=== PATIENT | male | born 1965 | race Caucasian/White ===

== ENCOUNTER → 2018-01-07 | Outpatient (CLI) | payer MEDICARE, MEDICAID ==
--- NOTE | 2018-01-07 13:37 | Diagnostic Imaging Report ---
INDICATION: Right flank pain. COMPARISON: None. FINDINGS: Single frontal radiographic view of the abdomen was obtained. Multiple extraosseous calcifications are noted. There is a 6 mm rounded calcification projecting over the right psoas muscle interposed between the right L4 and L5 transverse processes suspicious for mid ureteral calculus. There is also an additional 8 mm calculus projecting over the right renal shadow. Left-sided nephrolithiasis is also noted. There is an approximately 6 mm calculus projecting over the inferior pole of the left kidney. Small bowel loops are nondistended. There is no large collection of free intraperitoneal air. Patient appears to be status post previous ventral hernia repair. Otherwise, no unexpected radiopaque foreign bodies are seen. IMPRESSION: 1. Probable mid right ureteral calculus. 2. Bilateral nephrolithiasis. Dictated by: Dictated on workstation # [id number]
== END ==
LOC: RAD 13:13
PROVIDERS: ATTEND Urology
DX: N20.2 Calculus of kidney with calculus of ureter (principal)
CPT/HCPCS: 74018

== ENCOUNTER 2018-01-08 07:57 | Day surgery (SDC) | payer MEDICARE, MEDICAID ==
[~2018-01-08] VITALS: Ht 182.9 cm; Wt 90.7 kg
--- OUTSIDE RECORDS SUMMARY | 2018-01-08 08:03 | XMS REPORT | Continuity of Care Document ---
Author Author [facility] Organization [facility] Address Unknown Phone Unavailable Allergies Active Description Code Type Severity Reaction Onset Reported/Identified Relationship to Patient Clinical Status Yes NO KNOWN DRUG ALLERGIES UNKNOWN NO KNOWN DRUG ALLERG Yes meperidine [id number] Drug Allergy Unknown N/A 06/21/2015 Medications Medication Packaging Start Date Stop Date Route Dosage Sig KETOROLAC VIAL INJ 30 MG/CC (TORADOL VIAL) MG 01/05/2018 01/05/2018 ONCE&2044 LACTATED RINGERS 1000CC IV BAG INJ ml 01/05/2018 01/05/2018 ONCE&2044 FENTANYL INJ 100 MCG/2CC VIAL MCG 01/05/2018 01/05/2018 ONCE&213 Problems Date Dx Coded Attending Type Code Diagnosis Diagnosed By 07/04/2015 ENRIQUE ANDERSON, DEL Lewis Ot V58.32 Procedures There is no data. Results Test Result Range Comprehensive Metabolic Panel - 01/05/18 20:40 Albumin 4.4 g/dL 3.6-5.1 ALP 86 U/L 35-130 ALT 27 U/L 6-45 Anion Gap 16 6-14 AST 23 U/L 2-40 BUN 22 mg/dL 5-25 Calcium 10.1 mg/dL 8.3-10.4 Chloride 105 mmol/L 95-114 CO2 26 mEq/L 22-33 Creat 1.26 mg/dL 0.50-1.50 eGFR 60 mL/min/1.73m2 >59 Globulin 3.9 g/dL 2.3-3.5 Glucose 144 mg/dL 70-110 Osmo 301 280-295 Potassium 3.8 mmol/L 3.5-5.3 Sodium 143 mmol/L 134-148 TBil 0.3 mg/dL 0.2-1.2 TP 8.3 g/dL 6.0-8.3 Encounters ACCT No. Visit Date/Time Discharge Status Pt. Type Provider Facility Loc./Unit Complaint [id number] 10/17/2015 09:43:00 10/17/2015 23:59:59 CLS Outpatient RAGHU RIVERS APRN [facility] QUICK [id number] 07/01/2015 12:58:00 07/01/2015 13:08:00 DIS Emergency DEL NUNEZ MD [facility] ER [id number] 06/21/2015 14:19:00 06/21/2015 14:55:00 DIS Emergency EMILY RIVERA APRN [facility] ER [id number] 01/05/2018 20:48:26 Document Registration [id number] 01/05/2018 20:35:00 Document Registration
[2018-01-08 08:19] VITALS: BP 161/101
--- NOTE | 2018-01-08 08:19 | Progress Note-Pre Operative ---
Pre-Operative Progress Note H&P Reviewed The H&P was reviewed, patient examined and no changes noted. Date Seen by Provider: Jan 08, 2018 Time Seen by Provider: 08:18 Date H&P Reviewed: Jan 08, 2018 Time H&P Reviewed: 08:18 Pre-Operative Diagnosis: RT PROXIMAL AND BILATERAL RENAL STONES RANI CONLEY MD Jan 08, 2018 8:19 am
[2018-01-08] MEDS ORDERED: cefTRIAXone 1 GM/NS 100 ML IVPB IV ONE ×2 (08:30)
--- NOTE | 2018-01-08 09:06 | Diagnostic Imaging Report ---
INDICATION: Right ureteral calculus. Bilateral nephrolithiasis. COMPARISON: 01/07/2018 FINDINGS: Single supine radiographic view of the abdomen was obtained. Previously described calculus projecting over the right psoas muscle is much less conspicuous on this exam. This however is felt to be related to obscuration by colonic air and stool. Bilateral nephrolithiasis is again noted. Postsurgical changes of previous ventral hernia repair are also seen. No unexpected radiopaque foreign bodies are identified. Small bowel loops are nondistended. Bony structures show no gross acute abnormality. IMPRESSION: 1. Extraosseous calcification concerning for right mid ureteral stone identified on previous exam is much less conspicuous on today's study, but again this is felt to be related to obscuration by overlying chronic air and stool. 2. Redemonstration bilateral nephrolithiasis. Dictated by: Dictated on workstation # [id number]
--- NOTE | 2018-01-08 09:06 | Diagnostic Imaging Report ---
INDICATION: Palpitations. Ureteral calculi. COMPARISON: None FINDINGS: Frontal and lateral views of the chest demonstrate normal heart size and pulmonary vascularity. The lungs are clear. There are no signs of infiltrate, pleural effusions or pneumothoraces. The visualized osseous structures show no acute abnormalities. IMPRESSION: 1. No acute process. No signs of infiltrates, effusions or pneumothoraces. Dictated by: Dictated on workstation # [id number]
[2018-01-08] MEDS ORDERED: LIDOCAINE PF 2% 5 ML (XYLOCAINE) VIAL ONE (09:39)
[2018-01-08] MEDS ORDERED: fentaNYL INJECTION 100 MCG/2 ML AMP ONE (09:39)
[2018-01-08] MEDS ORDERED: ONDANSETRON 4 MG/2 ML (SDV) Z0FRAN ONE (09:39)
[2018-01-08] MEDS ORDERED: proPOfol 200 MG/20 ML (DIPRIVAN) VIAL IV ONE (09:39)
[2018-01-08] MEDS ORDERED: SEVOFLURANE (ULTANE) 15 ML INHAL SOLN ONE (09:39)
[2018-01-08] MEDS ORDERED: DEXAMETHASONE 10 MG/ML (DECADRON) 1 ML VIAL ONE (09:39)
[2018-01-08] MEDS ORDERED: MIDAZOLAM 2 MG/2 ML (VERSED) VIAL ONE (09:40)
--- NOTE | 2018-01-08 11:23 | Progress Note-Post Operative ---
Post-Operative Progess Note Surgeon (s)/Soot Blower (s) Surgeon RANI CONLEY MD Soot Blower: N/A Pre-Operative Diagnosis RT PROXIMAL AND BILATERAL RENAL STONES Post-Operative Diagnosis SAME Procedure & Operative Findings Date of Procedure 01/08/18 Procedure Performed/Findings RT URETEROSCOPY, RT URETERAL STONE MANIPULATION, RT RETROGRADE UROGRAM AND RT JJ STENT PLACEMENT Anesthesia Type GENERAL Estimated Blood Loss Estimated blood loss (mL): N/A Specimens/Packing Specimens Removed N/A Packing: N/A RANI CONLEY MD Jan 08, 2018 11:23 am
--- NOTE | 2018-01-08 11:26 | Discharge Inst-Urology ---
Discharge Inst-Urology Discharge Medications New, Converted, or Re-newed RX: RX on Chart Patient Instructions/Follow Up Plan Please make appointment to been seen in office Saturday 01/27, KUB prior to it KUB on way home Increase oral fluids for 48 hours and then as needed. Diet and Activity as tolerated. If questions or concerns contact your physician Or seek help at emergency department. RANI CONLEY MD Jan 08, 2018 11:26 am
[2018-01-08] MEDS ORDERED: morphine INJ 10 MG/ML 1ML (SYR OR VIAL) IVP PRN (11:30)
[2018-01-08] MEDS ORDERED: MEPERIDINE (DEMEROL) INJ 50 MG/ML IVP PRN (11:30)
[2018-01-08] MEDS ORDERED: ONDANSETRON 4 MG/2 ML (SDV) Z0FRAN IVP PRN (11:30)
[2018-01-08 12:20] VITALS: BP 131/96
--- NOTE | 2018-01-08 12:43 | Diagnostic Imaging Report ---
Procedure: Fluoroscopy. Indication: Right ureteroscopy with a stone lithotripsy. Findings: Fluoroscopic assistance was provided for Dr. Bledsoe. 90.4 seconds of fluoroscopy time was utilized. Five spot films were received from the OR. The films are not marked right or left. There is a retrograde device in place. There has been opacification of the right ureter and right renal pelvis. The abdomen exam performed earlier today raised the question of a calculus in the midportion of the right ureter. On this exam there is no clear defect within the opacified right ureter to suggest a calculus. The calculus overlying the superior pole of the right kidney seen on plain film exam is difficult to appreciate on this exam. Impression: 1. Fluoroscopic assistance was provided for Dr. Bledsoe. 2. There is no evidence for defect within the right ureter to suggest a calculus. Dictated by: Dictated on workstation # [id number]
[2018-01-08 12:50] VITALS: BP 137/93
--- NOTE | 2018-01-08 14:05 | OPERATIVE REPORT ---
DATE OF SERVICE: 01/08/2018 PREOPERATIVE DIAGNOSES: 1. Right proximal ureteral stone. 2. Bilateral renal stones. POSTOPERATIVE DIAGNOSES: 1. Right proximal ureteral stone. 2. Bilateral renal stones. OPERATION PERFORMED: Right ureteroscopy, stone manipulation, retrograde urogram, and insertion of right double-J stent. SURGEON: Reese Conley MD ANESTHESIA: General. COMPLICATIONS: None. PROCEDURE: Under satisfactory general anesthesia, the patient in lithotomy position, genitalia were prepped and draped in the usual sterile fashion. Cystoscope was introduced under vision. The anterior urethra was normal. The prostate revealed some enlargement with some bladder neck obstruction and trabeculations of the bladder. Ureteric orifices were normal in shape, size and configuration with clear efflux and sluggish on the right side. No foreign body, bladder tumor or stone visualized. Using the foroblique lens, I dilated the right ureteral orifice and intramural portion to accommodate a 6.9 Estonian semirigid ureteroscope; however, I could not manipulate the curve in the upper part of the distal ureter, so it was discontinued. Further attempt to remove the ureteroscope, reinserted the cystoscope. Passed a 6-Estonian ureteral catheter to the level of the stone, I pushed it back into the kidney, backed up the catheter and injected contrast. There was no filling defect along the ureter and complete emptying of the ureter was no problem. I removed the ureteral catheter, inserted a 6-Estonian 26 cm double-J stent, guided fluoroscopically easily all the way up to the right renal pelvis. The wire was removed and the stent was seen draining nicely, proximally, fluoroscopically and distally, endoscopically. Bladder was evacuated and the cystoscope was removed. The patient tolerated the procedure and anesthesia well and was sent to recovery room in stable condition. PLAN: Right ESWL on both the ureteral now renal stone and the other renal stone unless one of them decide to move down again. Later around two weeks later we will do the left side. The plan was fully explained to the patient preoperatively and his sister and postoperative as well. Job ID: [id number] DocumentID: [id number] Dictated Date: 01/08/2018 11:29:27 Traffic Technician Date: 01/08/2018 14:05:14 Dictated By: REESE CONLEY MD
--- NOTE | 2018-01-08 14:51 | Anesthesia-General Post-Op ---
General Patient Condition Mental Status/LOC: Same as Preop Cardiovascular: Satisfactory Nausea/Vomiting: Absent Respiratory: Satisfactory Pain: Controlled Complications: Absent Post Op Complications Complications None Follow Up Care/Instructions Patient Instructions None needed. Anesthesia/Patient Condition Patient Condition Patient is doing well, no complaints, stable vital signs, no apparent adverse anesthesia problems. No complications reported per nursing. ANJEL BEACH CRNA Jan 08, 2018 14:51
--- NOTE | 2018-01-08 16:46 | Diagnostic Imaging Report ---
EXAMINATION: Supine abdomen at 01:06 p.m. INDICATION: Post right ESWL. FINDINGS: Reportedly, the patient underwent ESWL earlier today. On this exam, there is now a stent overlying the expected path of the right ureter. The stent seems to be in good position. There is a small 5 mm calcification overlying the right renal contour near the tip of the stent. This may be related to the calcification overlying the path of the right ureter seen on the exam performed earlier today. The calcifications overlying the superior pole of the right kidney and the midportion of the left kidney noted previously are again evident and no different. There is no clear evidence for a calculus along the path of the stent. The overall appearance of the abdomen is otherwise no different. IMPRESSION: There is now a ureteral stent in place on the right. The stent seems to be in good position. There are calculi overlying each kidney, but there is no evidence for a calculus adjacent to the stent. Dictated by: Dictated on workstation # [id number]
== END 2018-01-08 12:50 ==
LOC: SDC 07:57
PROVIDERS: ATTEND Urology
DX: N20.1 Calculus of ureter (principal); N20.0 Calculus of kidney; Z11.2 Encounter for screening for other bacterial diseases; K21.9 Gastro-esophageal reflux disease without esophagitis; I10 Essential (primary) hypertension; F17.210 Nicotine dependence, cigarettes, uncomplicated
CPT/HCPCS: 71046; 74018; 87081; 93005

== ENCOUNTER → 2018-02-10 | Outpatient (CLI) | payer MEDICARE, MEDICAID ==
[~2018-02-10] MED LIST: HYDR-3870 PO; NITR-65 PO; TAMS0.4C98 PO
== END ==
LOC: PREOP 05:39
PROVIDERS: ATTEND Urology
DX: Z01.818 Encounter for other preprocedural examination (principal)

== ENCOUNTER → 2018-02-10 | Outpatient (CLI) | payer MEDICARE, MEDICAID ==
--- NOTE | 2018-02-10 15:32 | Diagnostic Imaging Report ---
INDICATION: Nephrolithiasis EXAM: KUB at 2:33 PM FINDINGS: There is a 9 mm cluster of stones in the inferior pole calyx of the right kidney. There is an 8 mm stone in the inferior pole of the left kidney. There is a right-sided double-J ureteral stent. IMPRESSION: Bilateral nephrolithiasis. Dictated by: Dictated on workstation # [id number]
== END ==
LOC: RAD 13:55
PROVIDERS: ATTEND Urology
DX: N20.0 Calculus of kidney (principal)
CPT/HCPCS: 74018

== ENCOUNTER 2018-02-11 08:33 | Day surgery (SDC) | payer MEDICARE, MEDICAID ==
[~2018-02-11] VITALS: Ht 182.9 cm; Wt 90.7 kg
[2018-02-11 08:38] VITALS: BP 144/92
--- NOTE | 2018-02-11 09:02 | Progress Note-Pre Operative ---
Pre-Operative Progress Note H&P Reviewed The H&P was reviewed, patient examined and no changes noted. Date Seen by Provider: February 11, 2018 Time Seen by Provider: 09:01 Date H&P Reviewed: February 11, 2018 Time H&P Reviewed: 09:01 Pre-Operative Diagnosis: LT RENAL STONE RANI CONLEY MD February 11, 2018 9:02 am
[2018-02-11] MEDS ORDERED: NS (IVPB) 100 ML ONE (09:26)
[2018-02-11] MEDS ORDERED: cefTRIAXone 1 GM (ROCEPHIN) VIAL ONE (09:26)
[2018-02-11] MEDS ORDERED: CATHETER FLUSH 10 ML SYR IV PRN (09:45)
[2018-02-11] MEDS ORDERED: cefTRIAXone 1 GM/NS 100 ML IVPB IV ONE ×2 (09:45)
--- NOTE | 2018-02-11 09:49 | Diagnostic Imaging Report ---
INDICATION: Preoperative evaluation prior to ESWL. COMPARISON: 02/10/2018. FINDINGS: Single supine radiographic view of the abdomen was obtained and demonstrates indwelling right-sided double-J ureteral stent in stable position. Bilateral renal calculi are again identified and are stable in position as well. No new unexpected extraosseous calcifications or radiopaque foreign bodies are seen. Small bowel loops are nondistended. There is no large collection of free intraperitoneal air. IMPRESSION: 1. Redemonstration of bilateral nephrolithiasis. 2. Indwelling right-sided double-J ureteral stent in stable position. Dictated by: Dictated on workstation # [id number]
[2018-02-11] MEDS ORDERED: FUROSEMIDE 40 MG/4 ML INJ (LASIX) ONE (11:08)
[2018-02-11] MEDS ORDERED: DEXAMETHASONE 10 MG/ML (DECADRON) 1 ML VIAL ONE (11:08)
[2018-02-11] MEDS ORDERED: LIDOCAINE PF 2% 5 ML (XYLOCAINE) VIAL ONE (11:08)
[2018-02-11] MEDS ORDERED: ONDANSETRON 4 MG/2 ML (SDV) Z0FRAN ONE (11:08)
[2018-02-11] MEDS ORDERED: SEVOFLURANE (ULTANE) 15 ML INHAL SOLN ONE ×2 (11:08→12:31)
[2018-02-11] MEDS ORDERED: proPOfol 200 MG/20 ML (DIPRIVAN) VIAL IV ONE (11:08)
[2018-02-11] MEDS ORDERED: KETOROLAC 30 MG/ML VIAL ONE (11:08)
[2018-02-11] MEDS ORDERED: MIDAZOLAM 2 MG/2 ML (VERSED) VIAL ONE (11:09)
[2018-02-11] MEDS ORDERED: fentaNYL INJECTION 100 MCG/2 ML AMP ONE (11:09)
--- NOTE | 2018-02-11 12:15 | Progress Note-Post Operative ---
Post-Operative Progess Note Surgeon (s)/Shactor Helper (s) Surgeon RANI CONLEY MD Shactor Helper: N/A Pre-Operative Diagnosis LT RENAL STONE Post-Operative Diagnosis SAME Procedure & Operative Findings Date of Procedure 02/11/18 Procedure Performed/Findings CYSTO, REMOVAL OF RT STENT AND LT ESWL Anesthesia Type GENERAL Estimated Blood Loss Estimated blood loss (mL): N/A Specimens/Packing Specimens Removed RT STENT Packing: N/A RANI CONLEY MD February 11, 2018 12:15 pm
--- NOTE | 2018-02-11 12:16 | Discharge Inst-Urology ---
Discharge Inst-Urology Discharge Medications New, Converted, or Re-newed RX: RX on Chart Patient Instructions/Follow Up Plan Please make appointment to been seen in office in 2 weeks. KUB prior to it KUB on way home Post ESWL instructions Increase oral fluids for 48 hours and then as needed. Diet and Activity as tolerated. If questions or concerns contact your physician Or seek help at emergency department. RANI CONLEY MD February 11, 2018 12:16 pm
[2018-02-11] MEDS ORDERED: LACTATED RINGERS 1,000 ML IV PRN (13:08)
[2018-02-11 13:30] VITALS: BP 133/91
[2018-02-11 14:00] VITALS: BP 142/104
[2018-02-11 14:30] VITALS: BP 160/98
--- NOTE | 2018-02-11 14:45 | Anesthesia-General Post-Op ---
General Patient Condition Mental Status/LOC: Same as Preop Cardiovascular: Satisfactory Nausea/Vomiting: Absent Respiratory: Satisfactory Pain: Controlled Complications: Absent Post Op Complications Complications None Follow Up Care/Instructions Patient Instructions None needed. Anesthesia/Patient Condition Patient Condition Patient was seen after the procedure and he was doing well, no complaints, stable vital signs, no apparent adverse anesthesia problems. JOHNSON KOENIG DO February 11, 2018 14:45
[2018-02-11 14:53] VITALS: BP 160/98
--- NOTE | 2018-02-11 15:07 | Diagnostic Imaging Report ---
Supine abdomen at 2:54. Indication: Post ESWL The exam performed earlier today noted calcific densities overlying each kidney. Report in the interval since the prior exam, the patient has undergone ESWL The calcification overlying the inferior pole of the right kidney is less distinct on this study and may be partially fragmented. The calcification overlying the left kidney is essentially no different. The ureteral stent on the right noted previously has been removed. The overall appearance the abdomen has not changed significantly otherwise. Impression: 1. The indistinct appearance of the calculus overlying the inferior pole of the right kidney suggests that it may be partially fragmented. The right ureteral stent has also been removed. 2. The appearance of the abdomen is essentially no different otherwise. Dictated by: Dictated on workstation # [id number]
--- NOTE | 2018-02-11 23:13 | OPERATIVE REPORT ---
DATE OF SERVICE: 02/11/2018 PREOPERATIVE DIAGNOSIS: Left renal stone. POSTOPERATIVE DIAGNOSIS: Left renal stone. OPERATION PERFORMED: Cystoscopy, removal of right ureteral stent and left ESWL. SURGEON: Reese Conley MD. ANESTHESIA: General. COMPLICATIONS: None. DESCRIPTION OF PROCEDURE: Under satisfactory general anesthesia, the patient in lithotomy position, genitalia were prepped and draped in the usual sterile fashion. Cystoscope was introduced under vision. The anterior urethra was normal. The prostate was nonobstructing. Bladder neck was opened. The distal end of the right ureteral stent was visualized, grasped with a grasping forceps and removed in toto. The patient was then put supine and the left renal stone was localized. Shocks were delivered at a kV of 5. A total of 2500 shocks completely fragmented the stone. The patient received 40 mg of Lasix and 30 mg of Toradol IV at the end of the procedure. He tolerated the procedure and anesthesia well and was sent to recovery room in stable condition. Job ID: [id number] DocumentID: [id number] Dictated Date: 02/11/2018 12:30:33 Underwear Welter Date: 02/11/2018 23:13:16 Dictated By: REESE CONLEY MD
== END 2018-02-11 14:53 | disposition home or self-care (01) ==
LOC: SDC 08:33
PROVIDERS: ATTEND Urology
DX: N20.0 Calculus of kidney (principal); Z96.0 Presence of urogenital implants
CPT/HCPCS: 74018; 87081

== ENCOUNTER → 2018-02-24 | Outpatient (CLI) | payer MEDICARE, MEDICAID ==
--- NOTE | 2018-02-24 17:16 | Diagnostic Imaging Report ---
INDICATION: Renal calculi. COMPARISON: 02/11/2018. FINDINGS: Two views of the abdomen demonstrate previously described renal calculus overlying the 12th rib, which is no longer seen. The bowel gas pattern is normal. Probable calcification is seen in the inferior pole of the right kidney. IMPRESSION: 1. Left renal calculus no longer identified on this series. 2. Stable probable right renal calculi. Dictated by: Dictated on workstation # [id number]
== END ==
LOC: RAD 15:40
PROVIDERS: ATTEND Urology
DX: N20.0 Calculus of kidney (principal)
CPT/HCPCS: 74018

== ENCOUNTER → 2018-06-06 | Outpatient (CLI) | payer MEDICARE, MEDICAID ==
--- NOTE | 2018-06-06 12:34 | Diagnostic Imaging Report ---
INDICATION: Nephrolithiasis. TECHNIQUE: Single supine view of the abdomen 11:09 AM. CORRELATION STUDY: 02/24/2018 FINDINGS: Overlying bowel gas and stool is present obscuring detail. There is small area of calcification in the right upper quadrant likely over the right renal silhouette. In aggregate, it measures 5 mm. No definitive calcification over the left renal silhouette and/or along the expected course of either ureter. There are however several calcifications within the pelvis, likely largely phleboliths. Prior surgical change with hernia mesh repair over the right lower quadrant. IMPRESSION: 1. Small, 5 mm grouped area of fragmented calcification in the right upper quadrant suspect for potential right renal stones. Dictated by: Dictated on workstation # [id number]
== END ==
LOC: RAD 10:38
PROVIDERS: ATTEND Urology
DX: N20.0 Calculus of kidney (principal)
CPT/HCPCS: 74018

== ENCOUNTER 2019-01-27 09:48 | Emergency (ER) | payer MEDICARE, MEDICAID ==
[~2019-01-27] VITALS: Ht 180.3 cm; Wt 93.9 kg
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
[2019-01-27] MEDS ORDERED: OMEG1200 (10:10)
[2019-01-27] MEDS ORDERED: LISI2.5T (10:10)
[2019-01-27] MEDS ORDERED: TETANUS,DIPTH,PERTUSS P/F (BOOSTRIX) 0.5 ML VIAL IM ONE (10:15)
--- NOTE | 2019-01-27 10:24 | Diagnostic Imaging Report ---
INDICATION: Injury to the left shoulder AP, oblique, and transscapular views of the left shoulder were obtained. No fracture or acute bony abnormality seen. There is no significant degenerative change. IMPRESSION: Negative left shoulder. Dictated by: Dictated on workstation # [id number]
--- NOTE | 2019-01-27 10:33 | NUR ---
IN ROOM AT THIS TIME.
[2019-01-27 10:57] VITALS: BP 136/92
== END 2019-01-27 10:57 | disposition home or self-care (01) ==
LOC: EDUNIT# 09:48 → ER 09:50
DX: S01.312A Laceration without foreign body of left ear, initial encounter (principal); S43.402A Unspecified sprain of left shoulder joint, initial encounter; R40.2142 Coma scale, eyes open, spontaneous, at arrival to emergency department; R40.2252 Coma scale, best verbal response, oriented, at arrival to emergency department; R40.2362 Coma scale, best motor response, obeys commands, at arrival to emergency department; Z88.8 Allergy status to other drugs, medicaments and biological substances; Z86.69 Personal history of other diseases of the nervous system and sense organs; Z87.442 Personal history of urinary calculi; V57.6XXA Passenger in pick-up truck or van injured in collision with fixed or stationary object in traffic accident, initial encounter
CPT/HCPCS: 12011; 73030

== ENCOUNTER → 2020-11-30 | Outpatient (CLI) | payer MEDICARE, MEDICAID ==
[~2020-11-30] MED LIST changes: +LISI2.5T; +OMEG1200; -TAMS0.4C98 PO; +TMSL.4C PO
--- NOTE | 2020-11-30 17:11 | Diagnostic Imaging Report ---
INDICATION: Bilateral renal calculi. EXAMINATION: Supine image of the abdomen was obtained. COMPARISON: Study of 06/06/2018. FINDINGS: Overlying bowel limits evaluation for urinary tract calculi, however, no stone is identified. Calcifications in the left hemipelvis are likely due to phleboliths. There is a mild to moderate amount of stool in the right colon and at the level of the rectum. There is no evidence of free intraperitoneal gas or pneumatosis on this supine image. IMPRESSION: No pathologic abdominal calcification is seen. Dictated by: Dictated on workstation # [id number]
== END ==
LOC: RAD 15:22
PROVIDERS: ATTEND Urology
DX: N20.0 Calculus of kidney (principal)
CPT/HCPCS: 74018

== ENCOUNTER → 2021-11-23 | Outpatient (CLI) | payer MEDICARE, MEDICAID ==
[~2021-11-23] MED LIST changes: -LISI2.5T; +LISI2.5T13
--- NOTE | 2021-11-23 15:39 | Diagnostic Imaging Report ---
EXAMINATION: Abdominal radiographs, single view, 2 images. DATE: November 23, 2021. CLINICAL INDICATION: 56-year-old male, bilateral renal stones. Abdominal pain. COMPARISON: November 30, 2020. COMMENTS: There are multiple metallic coils overlying the right lower quadrant which appear unchanged in position since November 30, 2020. There are gas-filled segments of large bowel which are not grossly distended. There is a mild volume colonic stool. The upper abdomen is incompletely imaged. There is no identified free intracranial air, portal venous gas, or pneumatosis. There are small calcifications in the left side of the pelvis which are not well localized. There is no identified abnormal radiodensity overlying the kidneys. IMPRESSION: 1. Small pelvic calcifications to the left of midline which are not well localized. 2. No identified radiodensity overlying the kidneys to specifically suggest a renal stone on radiographs. 3. Grossly unremarkable bowel gas pattern. Dictated by: Dictated on workstation # [id number]
== END ==
LOC: RAD 14:59
PROVIDERS: ATTEND Urology
DX: N20.0 Calculus of kidney (principal)
CPT/HCPCS: 74018